=== PATIENT | male | born 1970 | race Caucasian/White ===

== ENCOUNTER 2024-06-19 16:19 | Observation (INO) ==
[2024-06-19] MEDS: Lactated Ringers SEPSIS* BAG 2,050 ML IV ONE (17:57)
[2024-06-19 17:59] LABS: ABS Lymphocytes 0.5 10^3/uL (1.0-4.8); ABS Monocytes 1.5 10^3/uL (0.0-1.1); ABS Neutrophils 13.3 10^3/uL (1.5-7.6); Hematocrit 40.8 % (38-53); Hemoglobin 13.3 g/dL (13.2-16.3); Lymphocyte % 3.4 %; Mean Corpuscular Hemoglobin 26.2 pg (27-33); Mean Corpuscular Hgb Conc 32.5 g/dL (31-36); Mean Corpuscular Volume 80.7 fL (80-97); Mean Platelet Volume 7.9 fL (7.5-11.2); Platelet Count 183 10^3/uL (150-450); Red Blood Count 5.06 10^6/uL (4.06-5.63); Red Cell Distribution Width 14.8 % (12-17); White Blood Count 15.4 10^3/uL (3.6-10.2)
[2024-06-19 18:18] LABS: INR 1.23 (0.85-1.14)
[2024-06-19 18:32] LABS: Albumin 4.5 g/dL (3.2-5.2); C Reactive Protein 96.63 mg/L (<8.01); Calcium 9.3 mg/dL (8.6-10.3); Globulin 2.3 g/dL (2-4); Potassium 3.8 mmol/L (3.5-5.0); Total Protein 6.8 g/dL (6.4-8.9)
[2024-06-19 19:44] LABS: Urine Appearance Clear; Urine Bilirubin Negative (Negative); Urine Blood 1+ (Negative); Urine Color Yellow; Urine Glucose Negative (Negative); Urine Ketones Negative (Negative); Urine Nitrite Negative (Negative); Urine Protein Trace (Negative); Urine Specific Gravity 1.019 (1.002-1.030); Urine Urobilinogen Negative (Negative)
[2024-06-19 19:53] LABS: Urine Bacteria Absent /HPF (Absent); Urine Red Blood Cell 1+(3-5/hpf) /HPF (0-Trace); Urine Squamous Epithelial Cell Present /HPF (Absent); Urine White Blood Cell 3+(>20/hpf) /HPF (0-Trace)
[2024-06-19] MEDS ORDERED: Dextrose 50% Syringe 50 ml 25 GM/50 ML SYRINGE IV PUSH PRN (21:09)
[2024-06-19] MEDS ORDERED: Morphine 2 MG/ML SYRINGE IV PRN (21:21)
[2024-06-19] MEDS: Enoxaparin 40 MG/0.4 ML SYR SUBCUT SCH (22:27)
[2024-06-20] MEDS ORDERED: cefTRIAXone 1 gm/50 mL D5W 1 GM/50 ML BAG IV SCH (09:00)
[2024-06-20 11:56] LABS: ABS Lymphocytes 0.7 10^3/uL (1.0-4.8); ABS Monocytes 0.9 10^3/uL (0.0-1.1); ABS Neutrophils 8.1 10^3/uL (1.5-7.6); ABS Nucleated RBC 0.02 10^3/ul; Hematocrit 39.8 % (38-53); Hemoglobin 12.9 g/dL (13.2-16.3); Lymphocyte % 6.8 %; Mean Corpuscular Hemoglobin 26.6 pg (27-33); Mean Corpuscular Hgb Conc 32.4 g/dL (31-36); Mean Corpuscular Volume 81.9 fL (80-97); Mean Platelet Volume 8.1 fL (7.5-11.2); Nucleated Red Blood Cells % 0.2 %/100WBC (0.0-0.8); Platelet Count 143 10^3/uL (150-450); Red Blood Count 4.86 10^6/uL (4.06-5.63); Red Cell Distribution Width 15.2 % (12-17); White Blood Count 9.7 10^3/uL (3.6-10.2)
[2024-06-20 12:11] LABS: Calcium 8.9 mg/dL (8.6-10.3); Creatinine, Serum 0.99 mg/dL (0.67-1.17); Potassium 3.7 mmol/L (3.5-5.0); eGFR CKD-EPI 91.1 (>60)
[2024-06-20] MEDS: cefTRIAXone 1 gm/50 mL D5W 1 GM/50 ML BAG IV SCH (14:51)
[2024-06-21 07:47] LABS: ABS Lymphocytes 0.8 10^3/uL (1.0-4.8); ABS Monocytes 1.2 10^3/uL (0.0-1.1); ABS Neutrophils 5.3 10^3/uL (1.5-7.6); Eosinophil % 0.4 %; Hematocrit 37.1 % (38-53); Hemoglobin 12.7 g/dL (13.2-16.3); Lymphocyte % 10.4 %; Mean Corpuscular Hemoglobin 27.4 pg (27-33); Mean Corpuscular Hgb Conc 34.3 g/dL (31-36); Mean Corpuscular Volume 79.9 fL (80-97); Platelet Count 124 10^3/uL (150-450); Red Blood Count 4.64 10^6/uL (4.06-5.63); Red Cell Distribution Width 14.4 % (12-17); White Blood Count 7.2 10^3/uL (3.6-10.2)
[2024-06-21 08:09] LABS: Calcium 8.3 mg/dL (8.6-10.3); Creatinine, Serum 0.84 mg/dL (0.67-1.17); Magnesium 1.9 mg/dL (1.9-2.7); Potassium 3.8 mmol/L (3.5-5.0); eGFR CKD-EPI 104.3 (>60)
[2024-06-21 13:03] VITALS: BP 125/75
== END 2024-06-21 15:30 | disposition home or self-care (01) ==
LOC: ED 16:19 → EDHOLD 16:19 → SUATTDRO 20:28 → MED 22:16
PROVIDERS: ADMIT Student in an Organized Health Care Education/Training Program; ATTEND Student in an Organized Health Care Education/Training Program